=== PATIENT | female | born 1980 | race African-American/Black ===

== ENCOUNTER 2017-02-07 09:57 | Emergency (ER) | payer OTHER ==
[~2017-02-07] VITALS: Ht 160 cm; Wt 104.3 kg
[~2017-02-07 09:57] MED LIST: AMOXICILLIN 50500 M1 PO; CARVEDILOL12.5 MG PO; CARVEDILOL6.25 MG PO; CELEXA20 MG PO; COREG6.25 MG PO; CYCLOBENZAPRINE5 MG PO; HYDROCODONE-AP1 EAC6 PO; IBUPROFEN 800800 M1 PO; LASIX 40 MG TAB40 M2 PO; LISINOPRIL2.5 MG PO; METFORMIN HCL500 MG; METHIMAZOLE10 MG PO; METHIMAZOLE5 MG PO; NORCO 5-325 TA1 EACH PO; ONE-A-DAY WOMENS; POTASSIUM20 PO; PRINIVIL5 MG PO; ZOFRAN ODT4 MG PO
[2017-02-07] MEDS ORDERED: AUGMENTIN 875-1 EACH PO (10:18)
== END 2017-02-07 11:04 | disposition home or self-care (01) ==
LOC: ER 09:57
DX: S90.812A Abrasion, left foot, initial encounter (principal); E11.9 Type 2 diabetes mellitus without complications; I11.0 Hypertensive heart disease with heart failure; I50.9 Heart failure, unspecified; F10.99 Alcohol use, unspecified with unspecified alcohol-induced disorder; F15.10 Other stimulant abuse, uncomplicated; T63.001A Toxic effect of unspecified snake venom, accidental (unintentional), initial encounter; Y92.89 Other specified places as the place of occurrence of the external cause; Y93.89 Activity, other specified; Y99.8 Other external cause status

== ENCOUNTER 2017-04-21 22:33 | Emergency (ER) | payer OTHER ==
[~2017-04-21] VITALS: Ht 160 cm; Wt 97.5 kg
[~2017-04-21 22:33] MED LIST changes: +AUGMENTIN 875-1 EACH PO
[2017-04-22] MEDS ORDERED: BUTALB-APAP-CA1 EACH PO (01:31)
[2017-04-22] MEDS ORDERED: ALLEGRA ALLERG180 MG PO (01:31)
== END 2017-04-22 02:05 | disposition home or self-care (01) ==
LOC: ER 22:33
DX: S80.01XA Contusion of right knee, initial encounter (principal); S09.90XA Unspecified injury of head, initial encounter; J30.9 Allergic rhinitis, unspecified; R04.0 Epistaxis; E11.9 Type 2 diabetes mellitus without complications; I11.0 Hypertensive heart disease with heart failure; I50.9 Heart failure, unspecified; F10.99 Alcohol use, unspecified with unspecified alcohol-induced disorder; V49.40XA Driver injured in collision with unspecified motor vehicles in traffic accident, initial encounter; Y93.I9 Activity, other involving external motion; Y92.89 Other specified places as the place of occurrence of the external cause; Y99.8 Other external cause status